=== PATIENT | male | born 1990 | race Caucasian/White ===

== ENCOUNTER 2021-08-29 08:02 | Emergency (ER) | payer OTHER, SELFPAY ==
--- NOTE | ~2021-08-29 | XR_ITS ---
XR finger 3rd LT min 2V 08/29/2021 08:33 INDICATION: Left third finger pain PROCEDURE: 4 views left third finger COMPARISON: No prior studies for comparison. FINDINGS: Fracture, dislocation or subluxation is not identified. The soft tissues appear within norm al limits. No foreign bodies are identified. IMPRESSION: 1: NO ACUTE BONE OR JOINT ABNORMALITY IDENTIFIED. Reviewed, dictated and finalized at location A. CHECKER
[2021-08-29 08:14] VITALS: BP 155/87; PULSE 86; RESP 16; TEMP 37.6; O2SAT 100
--- NOTE | 2021-08-29 08:22 | ED.UPPEXIN ---
HPI - Extremity Injury (Upper) General Chief Complaint: Extremity Injury, Upper Stated Complaint: left hand finger injury History of Present Illness HPI narrative: This is a 31-year-old male that presents to urgent care complaining of a left middle finger swelling unable to move and painful to touch. patient states 3 months ago he had a thorn stuck in his finger he removed it he was seen in the emergency room they gave him a tetanus shot. Patient states that there is always a small little bump on there and still was sensitive today he woke up and the whole finger is swollen and is painful and it hurts to move. Patient states he did not have any injuries did not lift anything abnormally during that fall he just woke up and it was like this. Related Data Home Medications Medication Instructions Recorded Confirmed No Home Medications 08/29/21 08/29/21 Allergies Allergy/AdvReac Type Severity Reaction Status Date / Time No Known Allergies Allergy Verified 08/29/21 08:16 Review of Systems Review of Systems: Left middle finger swelling and painful All systems reviewed & are unremarkable except as noted in HPI and below PMFSH Comments At time as signature, I have reviewed and agree with nursing past medical, social, surgical and family history. Please see nursing chart for further information. There is no relevant family history pertinent to the presenting complaint. Exam Narrative: GENERAL:Well-appearing, well-nourished, and in no acute distress. HEAD:Normocephalic, atraumatic. EYES: PERRLA ENT: Nares clear, no rhinorrhea or epistaxis. Mucous membranes moist. CHEST: No respiratory distress. HEART: Normal peripheral pulses. ABDOMEN: Soft, nontender, nondistended, EXTREMITIES: Normal range of motion. Left middle finger 2+ edema. SKIN: Warm, dry, no rash. NEURO: No focal deficits. Alert and oriented x3. Course Course Emergency Course: [facility] [address] [id number] XRay ReportSigned Patient: Tia cunninghamOB: 1990MR#: [id number]/Sex: 31 / MAcct:[id number]: EXPBETH ADM Date: 08/29/21Attending Dr: Ordering Physician: Tim Cooper APN Date of Service: 08/29/21 Procedure(s): XR finger 3rd LT min 2V Accession Number(s): [id number] cc: Tim Cooper APN; [employer] PHYSICIAN~ XR finger 3rd LT min 2V 08/29/2021 08:33 INDICATION: Left third finger pain PROCEDURE: 4 views left third finger COMPARISON: No prior studies for comparison. FINDINGS: Fracture, dislocation or subluxation is not identified. The soft tissues appear within normal limits. No foreign bodies are identified. IMPRESSION: 1: NO ACUTE BONE OR JOINT ABNORMALITY IDENTIFIED Vital Signs Vital signs: Vital Signs Temperature 99.7 F H 08/29/21 08:14 Pulse Rate 86 08/29/21 08:14 Respiratory Rate 16 08/29/21 08:14 Blood Pressure 155/87 H 08/29/21 08:14 Pulse Oximetry 100 08/29/21 08:14 Temperature 99.7 F H 08/29/21 08:14 Pulse Rate 86 08/29/21 08:14 Respiratory Rate 16 08/29/21 08:14 Blood Pressure 155/87 H 08/29/21 08:14 Pulse Oximetry 100 08/29/21 08:14 Discharge Plan Discharge Clinical Impression: Hypertension Qualifiers: Hypertension type: unspecified Qualified Code(s): I10 - Essential (primary) hypertension Cellulitis Qualifiers: Site of cellulitis: extremity Site of cellulitis of extremity: finger Laterality: left Qualified Code(s): L03.012 - Cellulitis of left finger Patient Disposition: Home, Self-Care Condition: Stable Instructions: Antibiotic Form, Cellulitis (ED), Hypertension (ED) Additional Instructions: Your blood pressure was elevated in the clinic today, please follow-up with your regular doctor for further evaluation and monitor for evaluation of hypertension Please AMIANTA schedule a followup visit with your personal physician with in the next 1-4 weeks for further evaluation and treatment. Also
== END 2021-08-29 09:09 | disposition home or self-care (01) ==
PROVIDERS: Emergency Provider Nurse Practitioner Family
DX: L03.012 Cellulitis of left finger (principal); I10 Essential (primary) hypertension
CPT/HCPCS: 73140; 99213; G0463